=== PATIENT | male | born 1935 | race Two or more races ===

== ENCOUNTER 2022-02-01 20:50 | Emergency (ER) | payer MEDICARE ==
[~2022-02-01] VITALS: Ht 157.5 cm; Wt 54.4 kg
--- NOTE | 2022-02-01 21:20 | NUR ---
Dr. Floyd at bedside for MSE.
[2022-02-01] MEDS ORDERED: TRANEXAMIC ACID 1,000 MG/10 ML VIAL ONE (21:44)
[2022-02-01] MEDS ORDERED: TRANEXAMIC ACID 1,000 MG/10 ML VIAL IR ONE (21:45)
[2022-02-01 22:58] LABS: CARBON DIOXIDE 23 mmol/L (21-32); CHLORIDE 110 mmol/L (98-107); CREATININE 0.8 mg/dL (0.6-1.3); GLUCOSE 129 mg/dL (74-106); HEMATOCRIT 33.3 % (36.7-47.1); MEAN CORPUSCULAR VOLUME 97.7 fL (73.0-96.2); PLATELET COUNT (AUTO) 204 K/uL (152-348); POTASSIUM 4.1 mmol/L (3.5-5.1); UREA NITROGEN, BLOOD 18 mg/dL (7-18)
[2022-02-01] MEDS ORDERED: LIDOCAINE 1%-EPI 1:100,000 20 ML VIAL ONE (23:24)
[2022-02-01] MEDS ORDERED: LIDOCAINE 1%-EPI 1:100,000 20 ML VIAL IJ ONE (23:30)
--- NOTE | 2022-02-01 23:49 | NUR ---
Patient discharged to home in stable condition. Written and verbal after care instructions given. Patient verbalizes understanding of instructions. Stressed follow up or return to ER for worsening s/s. Patient out of ER with steady gait, no acute signs of distress, VSS, all belongings taken, IV site discontinued, to be driven home by family via private vehicle.
[2022-02-01 23:50] VITALS: BP 106/66
== END 2022-02-02 01:08 | disposition home or self-care (01) ==
LOC: ER 20:50
DX: S81.801A Unspecified open wound, right lower leg, initial encounter (principal); X58.XXXA Exposure to other specified factors, initial encounter; Y92.89 Other specified places as the place of occurrence of the external cause; E78.5 Hyperlipidemia, unspecified; N40.0 Benign prostatic hyperplasia without lower urinary tract symptoms
CPT/HCPCS: 99283; 80048; 85025; 85730; 86850; 86900; 86901; 36415; J3490; A4663